=== PATIENT | female | born 1980 | race Hispanic/Latino ===

== ENCOUNTER 2019-02-05 09:36 | Emergency (ER) | payer SELFPAY ==
--- NOTE | 2019-02-05 10:29 | RAD REPORT ---
EXAM DESCRIPTION: US - Abdomen Exam Limited - 02/05/2019 10:10 am CLINICAL HISTORY: Abdominal pain. COMPARISON: None. FINDINGS: The gallbladder wall is not thickened. A gallstone is not seen. The biliary tree is normal caliber. Fatty liver suspected IMPRESSION: Unremarkable gallbladder ultrasound.
[2019-02-05 10:32] LABS: Absolute Lymphocytes (CBC) 2.2 K/uL (0.7-4.9); Absolute Monocytes 0.3 K/uL (0.1-1.3); Basophils % 0.8 % (0-1.3); Eosinophils % 2.2 % (0-4.4); Hematocrit 42.3 % (36.0-45.0); Lymphocytes % 32.4 % (15.3-44.8); MPV 7.4 fL (7.6-11.3); Monocytes % 4.6 % (3.3-12.3); RBC Red Blood Cell Count 5.31 M/uL (3.86-4.86)
[2019-02-05 10:42] LABS: Urine Blood TRACE (NEG); Urine Glucose NEGATIVE (NEG); Urine Protein NEGATIVE (NEG); Urine pH 5.5 (5.0-7.0)
[2019-02-05 10:43] LABS: ALT/SGPT 53 U/L (12-78); AST/SGOT 26 U/L (15-37); Albumin 4.1 g/dL (3.4-5.0); Alkaline Phosphatase 58 U/L (45-117); BUN Blood Urea Nitrogen 12 mg/dL (7-18); Bicarbonate 28 mmol/L (21-32); Bilirubin Direct 0.2 mg/dL (0-0.2); Bilirubin Total 0.8 mg/dL (0.2-1.0); Glucose Level 96 mg/dL (74-106); Lipase 217 U/L (73-393); Potassium 4.2 mmol/L (3.5-5.1); Protein, Total 7.8 g/dL (6.4-8.2); Sodium Level 140 mmol/L (136-145)
[2019-02-05] MEDS ORDERED: KETOROLAC 30 MG/ML INJ ONE (11:22)
--- NOTE | 2019-02-05 11:27 | RAD REPORT ---
EXAM DESCRIPTION: CT - Abdomen Pelvis W Contrast - 02/05/2019 11:13 am CLINICAL HISTORY: Abdominal pain . COMPARISON: none. TECHNIQUE: Computed axial tomography of the abdomen pelvis was obtained. 100 cc Isovue-300 was admin istered intravenously. Oral contrast was not requested which limits evaluation of bowel. All CT scans are performed using dose optimization technique as appropriate and may include automated exposure control or mA/KV adjustment according to patient size. FINDINGS: Fatty liver Spleen, pancreas, adrenal and kidneys appear unremarkable. There is no evidence of diverticulitis. The appendix is normal Mild anterior subluxation L5 on S1. Spondylolysis L5 IMPRESSION: Fatty liver
--- NOTE | 2019-02-05 11:34 | ER ---
Nurse's Notes [facility] Name: Toni Canales Age: 39 yrs Sex: Female : 1980 Arrival Date: 02/05/2019 Time: 09:39 Bed 13 Private MD: None, None Diagnosis: Generalized abdominal pain Presentation: 02/05 09:44 Presenting complaint: Patient states: Faroese speaking only, with daughter to interpret, "i have this abd pain for 3 days now, its on my entire abd"; denies N/V; denies F/C; denies diarrhea; pain is 8/10;. Transition of care: patient was not received from another setting of care. Onset of symptoms was February 05, 2019. Risk Assessment: Do you want to hurt yourself or someone else? Patient reports no desire to harm self or others. Initial Sepsis Screen: Does the patient meet any 2 criteria? Yes Does the patient have a suspected source of infection? No. Patient's initial sepsis screen is negative. Care prior to arrival: None. 09:44 Method Of Arrival: Ambulatory 09:44 Acuity: CECELIA 3 Triage Assessment: 09:49 General: Appears in no apparent distress. uncomfortable, Behavior is calm, cooperative, hj appropriate for age. Pain: Complains of pain in abdomen. GI: Reports lower abdominal pain. 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 - Social history:: Smoking status: Patient/guardian denies using tobacco, Patient/guardian denies using alcohol. - Ebola Screening: : Patient negative for fever greater than or equal to 101.5 degrees Fahrenheit, and additional compatible Ebola Virus Disease symptoms Patient denies exposure to infectious person Patient denies travel to an Ebola-affected area in the 21 days before illness onset. Screenin:48 Abuse screen: Denies threats or abuse. Denies injuries from another. Nutritional hj screening: No deficits noted. Tuberculosis screening: Fall Risk None identified. Assessment: 09:49 GI: Bowel sounds present X 4 quads. hj 11:58 General: Appears in no apparent distress. comfortable, Behavior is calm, cooperative, aj appropriate for age. Pain: Complains of pain in right upper quadrant and abdomen. Neuro: Level of Consciousness is awake, alert, obeys commands, Oriented to person, place, time, situation, Appropriate for age. Respiratory: Airway is patent Respiratory effort is even, unlabored, Respiratory pattern is regular, symmetrical. Derm: Skin is intact, is healthy with good turgor. Vital Signs: 09:47 BP 127 / 72; Pulse 63; Resp 18; Temp 97.5(TE); Pulse Ox 100% on R/A; Weight 63.5 kg; hj Height 4 ft. 10 in. (147.32 cm); Pain 8/10; 10:35 BP 125 / 70; Pulse 65; Resp 18; Pulse Ox 100% on R/A; hj 09:47 Body Mass Index 29.26 (63.50 kg, 147.32 cm) ED Course: 09:39 Patient arrived in ED. mr 09:39 None, None is Private Physician. mr 09:43 Yessenia Darby, [facility] is [facility]. kb 09:43 Joaquin Tavares MD is Attending Physician. kb 09:44 Shun Dow, YASMIN is Primary Nurse. hj 09:46 Triage completed. hj 09:49 Arm band placed on right wrist. hj 09:50 Patient has correct armband on for positive identification. Placed in gown. Bed in low hj position. Call light in reach. Side rails up X 1. Adult w/ patient. 10:11 US Abdomen Limited In Process Unspecified. EDMS 10:20 Initial lab(s) drawn, by me, sent to lab. Inserted saline lock: 22 gauge in right hj antecubital area, using aseptic technique. Blood collected. 11:14 CT Abd/Pelvis - W/Contrast In Process Unspecified. EDMS 11:58 No provider procedures requiring assistance completed. IV discontinued, intact, aj bleeding controlled, No redness/swelling at site. Pressure dressing applied. Administered Medications: 11:41 Drug: TORadol 30 mg Route: IVP; Site: right antecubital; aj 12:00 Follow up: Response: Pain is decreased aj Outcome: 11:33 Discharge ordered by . kb 11:58 Discharged to home ambulatory. aj 11:58 Condition: good 11:58 Discharge instructions given to patient, family, Instructed on discharge instructions, follow up and referral plans. medication usage, Demonstrated understanding of instructions, follow-up care, medications, Prescriptions given X 1. 12:00 Patient left the ED. aj Signatures: Dispatcher [employer] EDVT Yessenia Darby, LEDA SNOW-Marga Shaffer RN RN aj Rivera, Mary mr Joaquin, Henry, RN RN
--- NOTE | 2019-02-05 11:34 | EDPHYS ---
Physician Documentation [facility] Name: Toni Canales Age: 39 yrs Sex: Female : 1980 Arrival Date: 02/05/2019 Time: 09:39 Bed 13 Private MD: None, None ED Physician Joaquin Tavares HPI: 02/05 10:21 This 39 yrs old Female presents to ER via Ambulatory with complaints of kb Abdominal Pain. 10:21 The patient presents with abdominal pain in the right upper quadrant. Onset: The kb symptoms/episode began/occurred 3 day(s) ago. The symptoms radiate to abdomen. Associated signs and symptoms: none. The symptoms are described as constant. Modifying factors: The symptoms are alleviated by nothing, the symptoms are aggravated by nothing. Severity of pain: At its worst the pain was moderate in the emergency department the pain is unchanged. The patient has not experienced similar symptoms in the past. The patient has not recently seen a physician. Pt reports RUQ pain for 3 days that radiates to rest of the abd. Denies fever, n/v/d. 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 - Social history:: Smoking status: Patient/guardian denies using tobacco, Patient/guardian denies using alcohol. - Ebola Screening: : Patient negative for fever greater than or equal to 101.5 degrees Fahrenheit, and additional compatible Ebola Virus Disease symptoms Patient denies exposure to infectious person Patient denies travel to an Ebola-affected area in the 21 days before illness onset. ROS: 10:21 Constitutional: Negative for fever, chills, and weight loss, Cardiovascular: Negative kb for chest pain, palpitations, and edema, Respiratory: Negative for shortness of breath, cough, wheezing, and pleuritic chest pain, Back: Negative for injury and pain, : Negative for injury, bleeding, discharge, and swelling, MS/Extremity: Negative for injury and deformity, Skin: Negative for injury, rash, and discoloration, Neuro: Negative for headache, weakness, numbness, tingling, and seizure. 10:21 Abdomen/GI: Positive for abdominal pain, Negative for nausea, vomiting, and diarrhea, constipation. Exam: 10:24 Constitutional: This is a well developed, well nourished patient who is awake, alert, kb and in no acute distress. Head/Face: Normocephalic, atraumatic. Chest/axilla: Normal chest wall appearance and motion. Nontender with no deformity. No lesions are appreciated. Cardiovascular: Regular rate and rhythm with a normal S1 and S2. No gallops, murmurs, or rubs. Normal PMI, no JVD. No pulse deficits. Respiratory: Lungs have equal breath sounds bilaterally, clear to auscultation and percussion. No rales, rhonchi or wheezes noted. No increased work of breathing, no retractions or nasal flaring. Skin: Warm, dry with normal turgor. Normal color with no rashes, no lesions, and no evidence of cellulitis. MS/ Extremity: Pulses equal, no cyanosis. Neurovascular intact. Full, normal range of motion. Neuro: Awake and alert, GCS 15, oriented to person, place, time, and situation. Cranial nerves II-XII grossly intact. Motor strength 5/5 in all extremities. Sensory grossly intact. Cerebellar exam normal. Normal gait. 10:24 Abdomen/GI: Inspection: abdomen appears normal, Bowel sounds: normal, in all quadrants, Palpation: soft, in all quadrants, mild abdominal tenderness, in the right upper quadrant and right lower quadrant. Vital Signs: 09:47 BP 127 / 72; Pulse 63; Resp 18; Temp 97.5(TE); Pulse Ox 100% on R/A; Weight 63.5 kg; hj Height 4 ft. 10 in. (147.32 cm); Pain 8/10; 10:35 BP 125 / 70; Pulse 65; Resp 18; Pulse Ox 100% on R/A; hj 09:47 Body Mass Index 29.26 (63.50 kg, 147.32 cm) MDM: 09:43 Patient medically screened. kb 10:24 Data reviewed: vital signs, nurses notes. Data interpreted: Pulse oximetry: on room air kb is 100 %. Interpretation: normal. 11:32 Counseling: I had a detailed discussion with the patient and/or guardian regarding: the kb historical points, exam findings, and any diagnostic results supporting the discharge/admit diagnosis, lab results, radiology results, the need for outpatient follow up, a family practitioner, to return to the emergency department if symptoms worsen or persist or if there are any questions or concerns that arise at home. 02/05 09:50 Order name: Basic Metabolic Panel; Complete Time: 10:53 kb 02/05 09:50 Order name: CBC with Diff; Complete Time: 10:40 kb 02/05 09:50 Order name: Hepatic Function; Complete Time: 10:53 kb 02/05 09:50 Order name: Lipase; Complete Time: 10:53 kb 02/05 10:27 Order name: Urine Dipstick--Ancillary (enter results); Complete Time: 10:53 eb 02/05 10:27 Order name: Urine --Ancillary (enter results); Complete Time: 10:53 eb 02/05 09:50 Order name: IV Saline Lock; Complete Time: 10: kb 02/05 09:50 Order name: Labs collected and sent; Complete Time: 10: kb 02/05 09:50 Order name: Urine Dipstick-Ancillary (obtain specimen); Complete Time: 10: kb 02/05 09:53 Order name: US Abdomen Limited; Complete Time: 10:31 kb 02/05 10:59 Order name: CT Abd/Pelvis - W/Contrast; Complete Time: 11:32 kb Administered Medications: 11:41 Drug: TORadol 30 mg Route: IVP; Site: right antecubital; aj 12:00 Follow up: Response: Pain is decreased aj Disposition: 17:15 Co-signature as Attending Physician, Joaquin Tavares MD. ma2 Disposition: 02/05/19 11:33 Discharged to Home. Impression: Generalized abdominal pain. - Condition is Stable. - Discharge Instructions: Abdominal Pain, Adult, [id number]. - Prescriptions for Diclofenac Sodium 75 mg Oral Tablet, Delayed Release (E.C.) - take 1 tablet by ORAL route 2 times per day As needed; 30 tablet. - Medication Reconciliation Form, Thank You Letter, Antibiotic Education, Prescription Opioid Use form. - Follow up: Emergency Department; When: As needed; Reason: Worsening of condition. Follow up: Private Physician; When: 2 - 3 days; Reason: Recheck today's complaints, Continuance of care, Re-evaluation by your physician. Signatures: Dispatcher [employer] EDYessenia Zelaya, GWENDOLYN-Desi CORLEYP-Marga Shaffer RN Shun Sanchez RN RN hj Alzahri, Mohammad, MD MD ma2 Corrections: (The following items were deleted from the chart) 12:00 11:33 02/05/2019 11:33 Discharged to Home. Impression: Generalized abdominal pain. aj Condition is Stable. Forms are Medication Reconciliation Form, Thank You Letter, Antibiotic Education, Prescription Opioid Use. Follow up: Emergency Department; When: As needed; Reason: Worsening of condition. Follow up: Private Physician; When: 2 - 3 days; Reason: Recheck today's complaints, Continuance of care, Re-evaluation by your physician. kb
== END 2019-02-05 12:00 | disposition home or self-care (01) ==
LOC: ER 09:36
DX: R10.84 Generalized abdominal pain (principal)
CPT/HCPCS: 36415; 74177; 76705; 80048; 80076; 81003; 81025; 83690; 85025; 96374; 99284; Q9967